=== PATIENT | female | born 1960 | race Caucasian/White ===

== ENCOUNTER 2017-11-20 08:32 | Emergency (ER) | payer MEDICARE, SELFPAY ==
[2017-11-20 08:33] VITALS: BP 138/77; PULSE 91; RESP 16; TEMP 36.7; O2SAT 100; BMI 22.6
[2017-11-20 08:34] VITALS: BMI 22.6
--- NOTE | 2017-11-20 08:35 | CT_ITS ---
CT head/brain wo con HISTORY: Lethargic, altered mental status, confusion ITS.REASON: lethargic ORDERING PHYSICIAN: Ross Resendiz MD PATIENT AGE: 57 years COMPARISON: None TECHNIQUE: Axial images obtained without contrast. Brain and bone windows reviewed. All CT scans at the facility use one or more dose reduction, viz: automated exposure control; ma/kV adjustment per patient size (including targeted exams where dose is matched to indication; i.e. head); or iterative reconstruction technique. FINDINGS: No midline shift, mass effect, intracranial hemorrhage, hydrocephalus, or extra-axial fluid collection is evident. Scattered periventricular and subcortical areas of decreased attenuation are present consistent with ischemic gliotic change from microvascular disease. There is a isodensity in the right basal ganglia measuring 7 mm and could be due to a choroidal fissure cyst or an old lacunar infarction. The calvarium has an unremarkable appearance. No mastoid effusion. There is opacification of the posterior aspect of the right ethmoid sinus... IMPRESSION: 1. No acute intracranial findings. 2. Chronic periventricular ischemic gliotic changes. Possible old lacunar infarction of the right basal ganglia versus choroidal fissure cyst 3. There is no evidence of intracranial hemorrhage, focal mass, or acute territorial infarction. A negative CT does not exclude an acute CVA. A follow-up head CT or MRI is recommended if neurological symptoms persist
--- NOTE | 2017-11-20 08:41 | XR_ITS ---
XR chest AP HISTORY: Altered mental status ITS.REASON: ams ORDERING PHYSICIAN: Ross Resendiz MD PATIENT AGE: 57 years COMPARISON: 08/10/2015 FINDINGS: Unremarkable cardiovascular structures. There is mild coarsening of the bronchovascular markings. No lobar consolidation or collapse. IMPRESSION: Chronic changes, no acute finding
--- NOTE | 2017-11-20 08:42 | HMH.EDAMS ---
ED Disposition Clinical Impression: CVA (cerebral vascular accident), Hypocalcemia, Hypothyroidism, Chronic use of opiate for therapeutic purpose Disposition: Xfer Short-Term Hosp Condition on Discharge: Fair Instructions: DI for Altered Mental Status Forms: Transfer Record - ED - Critical Care Critical Care Time: No Attestation: On 11/20/17, the high probability of a clinically significant, sudden or life threatening deterioration of the following system(s) required my full and direct attention, intervention and personal management. The time I documented below is in addition to time spent performing reported procedures but includes the following listed in this critical care notation. Medical Decision Making - Henrry Inquiry Pt receiving controlled substance: No Henrry was queried for this patient: No Vital Signs: 11/20/17 08:33 11/20/17 10:03 11/20/17 11:24 Temperature 98.1 F 98.7 F Temperature Source Oral Oral Pulse Rate 82 Pulse Rate [Left Radial] 91 H 99 H Respiratory Rate 16 16 16 Blood Pressure 131/66 Blood Pressure [Right Arm] 138/77 128/71 Blood Pressure Mean [Right Arm] 97 90 Blood Pressure Source Automatic Cuff Blood Pressure Source [Right Arm] Automatic Cuff Automatic Cuff Blood Pressure Position Sitting Blood Pressure Position [Right Arm] Sitting Sitting 02 Sat by Pulse Oximetry 100 100 Oxygen Delivery Method Nasal Cannula Nasal Cannula Nasal Cannula Oxygen Flow Rate (LPM) 2 2 2 - Lab Data Lab Results 11/20/17 09:30: Urine Color Yellow, Urine Appearance Clear, Urine pH 6.5, Ur Specific [place] 1.020, Urine Protein Negative, Urine Glucose (UA) Negative, Urine Ketones 2+, Urine Blood Negative, Urine Nitrate Negative, Urine Bilirubin Negative, Urine Urobilinogen 2.0, Ur Leukocyte Esterase Negative, Urine RBC Occasional, Urine WBC 3-5, Ur Squamous Epith Cells Occasional, Urine Bacteria 1+, Urine Mucus 3+ 11/20/17 09:30: Urine Opiates Screen Negative, Urine Methadone Screen Negative, Ur Barbituates Screen Negative, Ur Phencyclidine Scrn Negative, Ur Amphetamines Screen Negative, U Benzodiazepines Scrn Negative, Urine Cocaine Screen Negative, U Marijuana (THC) Screen Negative 11/20/17 09:55: WBC 8.7, RBC 4.70, Hgb 15.3, Hct 50.2 H, MCV 106.9 H, MCH 32.6 H, MCHC 30.5 L, RDW 12.5, Plt Count 191, MPV 7.3 L, Neut % (Auto) 83.2 H, Lymph % (Auto) 11.3, [place] % (Auto) 3.3, Eos % (Auto) 1.6, Baso % (Auto) 0.6, Neut # (Auto) 7.2, Lymph # (Auto) 1.0, [place] # (Auto) 0.3, Eos # (Auto) 0.1, Baso # (Auto) 0.1 11/20/17 09:55: Sodium 138, Potassium 4.0, Chloride 103, Carbon Dioxide 26, Anion Gap 13.0, BUN 10, Creatinine 0.75, Estimated Creat Clear 83, Estimated GFR 80, Est GFR ( Amer) 96, Glucose 107 H, Calcium 8.0 L, Total Bilirubin 0.6, AST 39 H, ALT 21, Alkaline Phosphatase 87, Total Creatine Kinase 171, CK-MB (CK-2) 3.8 H, CK-MB (CK-2) Rel Index 2.2, Troponin I < 0.02, Total Protein 6.9, Albumin 2.7 L, Globulin 4.2 H, Albumin/Globulin Ratio 0.6 L, Plasma/Serum Alcohol < 3 11/20/17 09:55: Lipase 111 11/20/17 09:55: Magnesium 1.6, TSH 3.39, Free T4 0.99, Free T4 Index 2.7 L, Thyroxine (T4) 7.6, T3 Uptake 35 11/20/17 09:56: POC Glucose 100 11/20/17 10:15: Specimen Source Right radial, O2 % 28% nc, ABG pH 7.33 L, ABG pCO2 37.5, ABG pO2 103.8 H, ABG HCO3 19.5 L, ABG Total CO2 20.7 L, ABG O2 Saturation 97, ABG Base Excess -6.4 L, Harpal Test Patient unable Result diagrams: 11/20/17 09:55 11/20/17 09:55 Orders (Tests/Meds): ED MEDICATIONS Discontinued Medications Generic Name Dose Route Start Last Admin Trade Name Freq PRN Reason Stop Dose Admin Aspirin 300 mg 11/20/17 10:51 11/20/17 10:54 Aspirin 600mg Suppository RC 11/20/17 10:52 300 mg ONCE ONE Administration Folic Acid 1 mg 11/20/17 08:52 11/20/17 10:53 Folic Acid 1mg Tablet PO 11/20/17 08:53 Not Given ONCE ONE Sodium Chloride 1,000 mls @ 999 mls/hr 11/20/17 09:
--- NOTE | 2017-11-20 08:46 | ED_ITS ---
ED Disposition Clinical Impression: CVA (cerebral vascular accident), Hypocalcemia, Hypothyroidism, Chronic use of opiate for therapeutic purpose Disposition: Xfer Short-Term Hosp Condition on Discharge: Fair Instructions: DI for Altered Mental Status Forms: Transfer Record - ED - Critical Care Critical Care Time: No Attestation: On 11/20/17, the high probability of a clinically significant, sudden or life threatening deterioration of the following system(s) required my full and direct attention, intervention and personal management. The time I documented below is in addition to time spent performing reported procedures but includes the following listed in this critical care notation. Medical Decision Making - Henrry Inquiry Pt receiving controlled substance: No Henrry was queried for this patient: No Vital Signs: 11/20/17 08:33 11/20/17 10:03 11/20/17 11:24 Temperature 98.1 F 98.7 F Temperature Source Oral Oral Pulse Rate 82 Pulse Rate [Left Radial] 91 H 99 H Respiratory Rate 16 16 16 Blood Pressure 131/66 Blood Pressure [Right Arm] 138/77 128/71 Blood Pressure Mean [Right Arm] 97 90 Blood Pressure Source Automatic Cuff Blood Pressure Source [Right Arm] Automatic Cuff Automatic Cuff Blood Pressure Position Sitting Blood Pressure Position [Right Arm] Sitting Sitting 02 Sat by Pulse Oximetry 100 100 Oxygen Delivery Method Nasal Cannula Nasal Cannula Nasal Cannula Oxygen Flow Rate (LPM) 2 2 2 - Lab Data Lab Results 11/20/17 09:30: Urine Color Yellow, Urine Appearance Clear, Urine pH 6.5, Ur Specific [place] 1.020, Urine Protein Negative, Urine Glucose (UA) Negative, Urine Ketones 2+, Urine Blood Negative, Urine Nitrate Negative, Urine Bilirubin Negative, Urine Urobilinogen 2.0, Ur Leukocyte Esterase Negative, Urine RBC Occasional, Urine WBC 3-5, Ur Squamous Epith Cells Occasional, Urine Bacteria 1+ , Urine Mucus 3+ 11/20/17 09:30: Urine Opiates Screen Negative, Urine Methadone Screen Negative, Ur Barbituates Screen Negative, Ur Phencyclidine Scrn Negative, Ur Amphetamines Screen Negative, U Benzodiazepines Scrn Negative, Urine Cocaine Screen Negative , U Marijuana (THC) Screen Negative 11/20/17 09:55: WBC 8.7, RBC 4.70, Hgb 15.3, Hct 50.2 H, MCV 106.9 H, MCH 32.6 H , MCHC 30.5 L, RDW 12.5, Plt Count 191, MPV 7.3 L, Neut % (Auto) 83.2 H, Lymph % (Auto) 11.3, [place] % (Auto) 3.3, Eos % (Auto) 1.6, Baso % (Auto) 0.6, Neut # ( Auto) 7.2, Lymph # (Auto) 1.0, [place] # (Auto) 0.3, Eos # (Auto) 0.1, Baso # (Auto ) 0.1 11/20/17 09:55: Sodium 138, Potassium 4.0, Chloride 103, Carbon Dioxide 26, Anion Gap 13.0, BUN 10, Creatinine 0.75, Estimated Creat Clear 83, Estimated GFR 80, Est GFR ( Amer) 96, Glucose 107 H, Calcium 8.0 L, Total Bilirubin 0.6, AST 39 H, ALT 21, Alkaline Phosphatase 87, Total Creatine Kinase 171, CK-MB (CK-2) 3.8 H, CK-MB (CK-2) Rel Index 2.2, Troponin I < 0.02, Total Protein 6.9, Albumin 2.7 L, Globulin 4.2 H, Albumin/Globulin Ratio 0.6 L, Plasma /Serum Alcohol < 3 11/20/17 09:55: Lipase 111 11/20/17 09:55: Magnesium 1.6, TSH 3.39, Free T4 0.99, Free T4 Index 2.7 L, Thyroxine (T4) 7.6, T3 Uptake 35 11/20/17 09:56: POC Glucose 100 11/20/17 10:15: Specimen Source Right radial, O2 % 28% nc, ABG pH 7.33 L, ABG pCO2 37.5, ABG pO2 103.8 H, ABG HCO3 19.5 L, ABG Total CO2 20.7 L, ABG O2 Saturation 97, ABG Base Excess -6.4 L, Harpal Test Patient unable Result diagrams: 11/20/17 09:55 11/20/17 09:55 Orders (Tests/Meds): ED MEDICATIO
[2017-11-20 09:36] LABS: Microscopic, Urine URINE MICROSCOPIC (MICROSCOPIC)
[2017-11-20 09:39] LABS: Appearance,Urine CLEAR (Clear); Blood, Urine Negative (Negative); Color,Urine YELLOW (Yellow); Glucose,Urine (UA) Negative (Negative); Ketones,Urine 2+ (Negative); Leukocyte Esterase,Urine Negative (Negative); Nitrate,Urine Negative (Negative); PH,Urine 6.5 (5.0-8.5); Protein,Urine Negative (Negative)
[2017-11-20 09:45] LABS: Amphetamine/Metha Screen,Urine Negative ng/mL (<1000); Barbiturates Screen,Urine Negative ng/mL (<200); Benzodiazepines Screen,Urine Negative ng/mL (<200); Cannabinoid Screen,Urine Negative ng/mL (<50); Cocaine Screen,Urine Negative ng/mL (<300); Methadone Screen,Urine Negative ng/mL (<300); Opiate Screen,Urine Negative ng/mL (<300); Phencyclidine Screen,Urine Negative ng/mL (<25)
[2017-11-20 09:48] LABS: Bilirubin,Urine Negative (Negative)
[2017-11-20 09:55] LABS: RBC,Urine Occasional #/hpf (0-3); Squamous Epithelial Cell,Urine Occasional #/hpf (0-5)
[2017-11-20 09:56] LABS: Bacteria,Urine 1+ /lpf; Mucus,Urine 3+ /lpf
[2017-11-20 10:03] VITALS: BP 128/71; PULSE 99; RESP 16; O2SAT 100
[2017-11-20 10:09] LABS: Basophils # 0.1 K/mm3 (0-0.2); Basophils % 0.6 % (0.1-2.0); Eosinophils # 0.1 K/mm3 (0.0-0.4); Eosinophils % 1.6 % (0.1-12.0); Hematocrit 50.2 % (37.0-47.0); Hemoglobin 15.3 g/dL (12.2-16.2); Lymphocytes % 11.3 K/mm3 (10-50); Mean Corpuscular HGB Conc 30.5 g/dL (31.8-35.4); Mean Corpuscular Hemoglobin 32.6 pg (27.0-31.2); Mean Corpuscular Volume 106.9 fl (81-99); Mean Platelet Volume 7.3 fl (7.4-10.4); Monocytes # 0.3 K/mm3 (0.1-1.0); Monocytes % 3.3 % (1.7-9.3); Neutrophils # 7.2 K/mm3 (1.8-7.8); Neutrophils % 83.2 % (37.0-80.0); Platelet Count 191 K/mm3 (142-424); Red Cell Distribution Width 12.5 % (11.5-17.5); White Blood Count 8.7 K/mm3 (4.8-10.8)
[2017-11-20 10:22] LABS: ABG Base Excess -6.4 mmol/L (-2.4-2.3); ABG HCO3 19.5 mmhg (22.0-26.0); ABG Oxygen Saturation 97 % (90-100); ABG PCO2 37.5 mmhg (35.0-45.0); ABG PH 7.33 mmol/L (7.35-7.45); ABG PO2 103.8 mmhg (80-100); ABG TCO2 20.7 mmhg (23-27)
[2017-11-20 10:23] LABS: Oxygen 28% NC %
[2017-11-20 10:24] LABS: Allen's Test Patient Unable; Source Right Radial
[2017-11-20 10:26] LABS: POC Glucose,Bedside 100 (70-110)
--- NOTE | 2017-11-20 10:27 | PC.NURSE ---
in with pt and family member. Explained to them that the pt will possibly need to be transferred to a higher level of care. Pt and family agreeable. Dr. Resendiz awaiting final test results before [facility] at this time.
--- NOTE | 2017-11-20 10:31 | PC.NURSE ---
KERLINE ROBBINS speaking with [employer] at this time.
[2017-11-20 10:33] LABS: Creatine Kinase MB 3.8 ng/ml (0.0-3.6); Troponin I < 0.02 ng/ml (0.00-0.06)
[2017-11-20 10:35] LABS: Alanine Aminotransferase 21 U/L (12-78); Albumin Level 2.7 gm/dL (3.4-5.0); Albumin/Globulin Ratio 0.6 (1.1-1.8); Alkaline Phosphatase 87 U/L (46-116); Aspartate Amino Transferase 39 U/L (15-37); Bilirubin,Total 0.6 mg/dL (0.2-1.0); Blood Urea Nitrogen 10 mg/dL (7-18); CKMB Relative Index 2.2 U/L (0-4.0); Carbon Dioxide 26 mmol/L (21.0-32.0); Chloride 103 mmol/L (98-107); Creatine Kinase 171 U/L (26-192); Creatinine Clearance Estimated 83 mL/min (0-300); Creatinine,Serum 0.75 mg/dL (0.55-1.02); Estimated Glomerular Filt Rate 80 ml/min (>60); GFR (African American) 96 ML/MIN (>60); Globulin 4.2 gm/dl (1.3-3.2); Glucose 107 mg/dL (74-106); Sodium 138 mmol/L (136-145); Total Protein,Serum 6.9 gm/dL (6.4-8.2)
--- NOTE | 2017-11-20 10:38 | PC.NURSE ---
dr Resendiz speaking with Dr Larsen at
[2017-11-20 10:41] LABS: Ethyl Alcohol < 3 mg/dL (0-99); Magnesium 1.6 mg/dL (1.4-2.2); T4 (Thyroxine) 7.6 ug/dl (4.7-13.3)
[2017-11-20 10:42] LABS: Free T4 (Free Thyroxine) 0.99 ng/dl (0.76-1.46); Free Thyroxine Index 2.7 ug/dL (5.93-13.13); Thyroid Stimulating Hormone 3.39 uIU/ml (0.358-3.740); Triiodothryronine (T3) Uptake 35 % (31-39)
[2017-11-20 10:43] LABS: Lipase 111 u/L (73-393)
--- NOTE | 2017-11-20 10:47 | PC.NURSE ---
Pt to be transferred to under the care of Dr. Michel.
[2017-11-20 11:24] VITALS: BP 131/66; PULSE 82; RESP 16; TEMP 37.1; O2SAT 100
[2017-11-22 05:14] LABS: Folate 5.4 ng/mL (>3.0)
[2017-11-22 11:41] LABS: Lithium (Eskalith(R)) 0.5 mmol/L (0.6-1.2)
[2017-11-22 11:42] LABS: Vitamin B12 642 pg/mL (232-1245)
== END 2017-11-20 11:26 | disposition short-term general hospital (02) ==
PROVIDERS: Emergency Provider Emergency Medicine
DX: I63.9 Cerebral infarction, unspecified (principal); E83.51 Hypocalcemia; E03.9 Hypothyroidism, unspecified; I25.10 Atherosclerotic heart disease of native coronary artery without angina pectoris; Z79.891 Long term (current) use of opiate analgesic; F17.210 Nicotine dependence, cigarettes, uncomplicated; Z88.0 Allergy status to penicillin; Z88.2 Allergy status to sulfonamides; Z88.6 Allergy status to analgesic agent
CPT/HCPCS: 70450; 71045; 80053; 80178; 80305; 81001; 82550; 82553; 82607; 82746; 82803; 82962; 83690; 83735; 84436; 84439; 84443; 84479; 84484; 85025; 93005; 96365; 99285

== ENCOUNTER 2020-03-05 22:04 | Emergency (ER) | payer OTHER, SELFPAY ==
[2020-03-05 22:18] VITALS: BP 157/97; PULSE 114; RESP 20; TEMP 36.9; O2SAT 91; BMI 18.3
[2020-03-05 23:05] LABS: Basophils # 0.1 K/mm3 (0-0.2); Eosinophils # 0.3 K/mm3 (0.0-0.4); Eosinophils % 1.9 % (0.1-12.0); Hemoglobin 16.7 g/dL (12.2-16.2); Lymphocytes # 2.3 K/mm3 (0.7-4.5); Lymphocytes % 15.6 % (10-50); Mean Corpuscular HGB Conc 30.9 g/dL (31.8-35.4); Mean Corpuscular Hemoglobin 32.5 pg (27.0-31.2); Mean Corpuscular Volume 105.1 fl (81-99); Mean Platelet Volume 7.9 fl (7.4-10.4); Monocytes # 0.6 K/mm3 (0.1-1.0); Monocytes % 4.3 % (1.7-9.3); Neutrophils # 11.3 K/mm3 (1.8-7.8); Neutrophils % 77.3 % (37.0-80.0); Platelet Count 231 K/mm3 (142-424); Red Blood Count 5.13 M/mm3 (4.20-5.40); Red Cell Distribution Width 14.7 % (11.5-17.5); White Blood Count 14.7 K/mm3 (4.8-10.8)
[2020-03-05 23:12] LABS: Chloride 103 mmol/L (98-107); Potassium 3.8 mmoL/L (3.5-5.1); Sodium 137 mmol/L (136-145)
[2020-03-05 23:14] LABS: Blood Urea Nitrogen 12 mg/dl (7-17)
[2020-03-05 23:15] LABS: Anion Gap 8.8 mEq/L (5-15); Calcium 10.9 mg/dl (8.4-10.2); Carbon Dioxide 29 mmol/L (22.0-30.0); Creatinine Clearance Estimated 33 mL/min (50-200); Estimated Glomerular Filt Rate 36 ml/min (>60); GFR (African American) 43 ML/MIN (>60); Glucose 125 mg/dl (74-100)
--- NOTE | 2020-03-05 23:17 | ECG_ITS ---
APPROVED REPORT Exam: Resting ECG HR:103 bpm ECG Measurements Heart Rate 103 AXES WY 148 P 74 QRSd 74 QRS 60 QT 360 T 63 QTc 471 Conclusion Sinus tachycardia Possible Left atrial enlargement Nonspecific ST abnormality Abnormal ECG Electronically signed by : Adrian Paz, 03/21/2020 16:42:36
[2020-03-05 23:21] LABS: Microscopic, Urine URINE MICROSCOPIC (MICROSCOPIC)
[2020-03-05 23:22] LABS: Appearance,Urine CLEAR (Clear); Bilirubin,Urine Negative (Negative); Blood, Urine Negative (Negative); Color,Urine YELLOW (Yellow); Glucose,Urine (UA) Negative (Negative); Ketones,Urine Negative (Negative); Leukocyte Esterase,Urine TRACE (Negative); Nitrate,Urine Negative (Negative); Protein,Urine Negative (Negative); Urobilinogen,Urine 0.2 EU/dl (0.2)
[2020-03-05 23:30] VITALS: BP 135/77; PULSE 113; O2SAT 92
[2020-03-05 23:33] LABS: Amphetamine/Metha Screen,Urine Negative ng/ml (<1000)
[2020-03-05 23:34] LABS: Barbiturates Screen,Urine Negative ng/ml (<200); Benzodiazepines Screen,Urine Negative ng/ml (<200)
[2020-03-05 23:35] LABS: Cannabinoid Screen,Urine Negative ng/ml (<50)
[2020-03-05 23:36] LABS: Cocaine Screen,Urine Negative ng/ml (<300); Methadone Screen,Urine Negative ng/ml (<300)
[2020-03-05 23:37] LABS: Opiate Screen,Urine Negative ng/ml (<300)
[2020-03-05 23:38] LABS: Phencyclidine Screen,Urine Negative ng/ml (<25)
--- NOTE | 2020-03-05 23:44 | HMH.EDGENADL ---
ED Disposition Clinical Impression: Acute psychosis Disposition: Still a Patient Condition on Discharge: Good Referrals: PCP,No [Primary Care Provider] - - Critical Care Critical Care Time: No Attestation: On 03/05/20, the high probability of a clinically significant, sudden or life threatening deterioration of the following system(s) required my full and direct attention, intervention and personal management. The time I documented below is in addition to time spent performing reported procedures but includes the following listed in this critical care notation. Medical Decision Making - Medical Records Medical records reviewed: Yes: I reviewed the patient's medical records. - Henrry Inquiry Pt receiving controlled substance: No Vital Signs: 03/05/20 22:18 03/05/20 23:30 Temperature 98.5 F Temperature Source Oral Pulse Rate [Right] 114 H 113 H Respiratory Rate 20 Blood Pressure [Left Arm] 157/97 H 135/77 Blood Pressure Mean [Left Arm] 117 96 Blood Pressure Source [Left Arm] Automatic Cuff Blood Pressure Position [Left Arm] Sitting 02 Sat by Pulse Oximetry 91 L 92 L Oxygen Delivery Method Room Air - Lab Data Lab Results 03/05/20 22:55: WBC 14.7 H, RBC 5.13, Hgb 16.7 H, Hct 54.0 H, MCV 105.1 H, MCH 32.5 H, MCHC 30.9 L, RDW 14.7, Plt Count 231, MPV 7.9, Neut % (Auto) 77.3, Lymph % (Auto) 15.6, [place] % (Auto) 4.3, Eos % (Auto) 1.9, Baso % (Auto) 1.0, Neut # (Auto) 11.3 H, Lymph # (Auto) 2.3, [place] # (Auto) 0.6, Eos # (Auto) 0.3, Baso # (Auto) 0.1 03/05/20 22:55: Sodium 137, Potassium 3.8, Chloride 103, Carbon Dioxide 29, Anion Gap 8.8, BUN 12, Creatinine 1.50 H, Estimated Creat Clear 33, Estimated GFR 36 L, Est GFR ( Amer) 43 L, Glucose 125 H, Calcium 10.9 H 03/05/20 23:10: Urine Color Yellow, Urine Appearance Clear, Urine pH 7.0, Ur Specific [place] 1.010, Urine Protein Negative, Urine Glucose (UA) Negative, Urine Ketones Negative, Urine Blood Negative, Urine Nitrate Negative, Urine Bilirubin Negative, Urine Urobilinogen 0.2, Ur Leukocyte Esterase Trace, Urine WBC 5-10, Ur Squamous Epith Cells -03/05/20 23:10: Urine Opiates Screen Negative, Urine Methadone Screen Negative, Ur Barbituates Screen Negative, Ur Phencyclidine Scrn Negative, Ur Amphetamines Screen Negative, U Benzodiazepines Scrn Negative, Urine Cocaine Screen Negative, U Marijuana (THC) Screen Negative Result diagrams: 03/05/20 22:55 03/05/20 22:55 Orders (Tests/Meds): ED MEDICATIONS Generic Name Dose Route Start Last Admin Trade Name Johan PRN Reason Stop Dose Admin Lactated Ringer's 1,000 mls @ 999 mls/hr 03/05/20 23:45 03/05/20 23:45 Lactated Ringer's 1000 Ml Bag IV 03/06/20 00:45 999 mls/hr .[id number] NELSON Administration Medical Decision Narrative: In summary 59-year-old female presenting for multiple complaints. Patient herself has no complaints however her daughter is concerned at bedside about her hallucinations, delusions and possible medication noncompliance. Patient has vitals concerning for tachycardia, given her history of lithium use basic labs were obtained including CMP, CBC, UDS, UA. On repeat assessment UDS and UA were negative, patient's blood blood work was concerning for dehydration, was given 1 L bolus of LR. EKG within normal limits, normal QTC and QT intervals. Discussed with patient that she does not have any SI, HI, AH, VH. Discussed with patient's sister (Esthela Woodson [phone]) who both state that pt is unsafe to go home, pt has not showered in 2 weeks, has had delusions of being followed and believes her phone is being tapped. Pt has significant paranoia which is new over this past 1.5 weeks. Pt also was requesting a gun to keep herself safe. Family unwilling to accept patient at this time. Hospitalist unwilling to admit patient until psych or case management can assess. Pt does not want to be transferred for psych assessment, pt was placed on 72 hour hold. Pastos level was sent off, thi
[2020-03-06] VITALS (8 sets, daily range): BP systolic 100–144; BP diastolic 52–85; PULSE 78–110; RESP 17–19; TEMP 36.7; O2SAT 92–100
--- NOTE | 2020-03-06 01:00 | PC.NURSE ---
Pt's daughter Kirsty Duran refuses to come get pt, states she is not welcome home.
--- NOTE | 2020-03-06 01:30 | PC.NURSE ---
Spoke with [facility] and they state they will only take pt on petition if they state to them they are suicidal. Pt does not at this time, but pt's daughter states she a harm to herself and refuses to come get her
--- NOTE | 2020-03-06 01:50 | PC.NURSE ---
I spoke with [facility] dispatch with Physician request for petition, they will have an officer call
--- NOTE | 2020-03-06 02:01 | PC.NURSE ---
Spoke with Officer Marcos with [employer] called back and states the officer does not do petitions for mental health and the pt will need to stay with us until saturday and the physician can petition the courts then.
--- NOTE | 2020-03-06 07:31 | PC.NURSE ---
Calling [facility] at this time.
--- NOTE | 2020-03-06 07:35 | PC.NURSE ---
Spoke with Yane at the [facility], she stated that they had a large call volume at this time for Zoom assessments but did have a phone only clinician available quicker. She was going to touch base with them and call us back. agreeable to this. No new orders at this time.
[2020-03-06 08:04] LABS: Ethyl Alcohol < 10 mg/dl (0-10)
--- NOTE | 2020-03-06 08:13 | PC.NURSE ---
Spoke with pt's daughter. She states that mother was drinking last night when she called to have the welfare check done. She also states that per pt's significant other tells her that she has taken herself off of her lithium. Pt has been cutting up her pills and went from 900mg a day down to 300mg and has not had a refill since july. aware.
--- NOTE | 2020-03-06 08:42 | PC.NURSE ---
Cat from the [facility] calls back. pt hx given and Cat is now speaking with pt.
--- NOTE | 2020-03-06 08:55 | PC.NURSE ---
Pt's daughter Kirsty calls back and states she has found out more info on her pt's medications from pt's significant other. Supposedly pt's psychiatrist has changed her dose of suboxone recently and she wasn't completely sure of the new dose. Pt is now speaking with Dr Arellano at this time.
--- NOTE | 2020-03-06 09:13 | PC.NURSE ---
Cat from the [facility] calls back stating that she is unable to see any issues with her mentally at this time. Cat is speaking with ER MD at this time.
[2020-03-06 10:00] LABS: Coronavirus 19 IgG Antibody Negative (Negative); Coronavirus 19 IgM Antibody Negative (Negative)
--- NOTE | 2020-03-06 10:25 | PC.NURSE ---
Spoke with Cat russ from the [facility]. She states that their MD there is suggesting a 72 hour hold due to the nature of the situation. She suggests speaking with our skilled nursing case manager to see how to follow up with getting the 72 hold.
--- NOTE | 2020-03-06 10:34 | PC.NURSE ---
Set O Type Operator Evelyn duran. She returns call. Explain to her the situation. She will be contacting Gina Chavez, Transitions Rn Care Coordinator who will be better equipped to handle this case and would have her return call.
--- NOTE | 2020-03-06 10:44 | PC.NURSE ---
Gina Chavez, Laundry Washer returned call. She states that there is paperwork up in her office to get it and fill it out appropriately. Call [facility] and explain to them the pt's situation. Tell them about the 72 hour hold need. Fax the information to [facility], the paperwork will have to be notarized once filled out. there will have to be a nurse to nurse report and a MD to MD report. Then to call dispatch to have then send an officer to take documents to the quality improvement consultant historian research assistant for approval.
--- NOTE | 2020-03-06 11:03 | PC.NURSE ---
Called [employer]rency [employer] Specialist to obtain a Notary, she will contact me when she obtains one.
--- NOTE | 2020-03-06 11:08 | PC.NURSE ---
KERLINE ROBBINS speaking with Gina Chavez at this time.
--- NOTE | 2020-03-06 11:54 | PC.NURSE ---
Called [facility] to see what all documentation they needed from us to accept pt.\ Admissions Dept states to send info to [phone] and call report to [phone]. Will be sending all necessary documents at this time.
--- NOTE | 2020-03-06 11:57 | PC.NURSE ---
Called [facility]patch to get secretary of police to take the paper work to the healthcare administration internship administrative judge.
--- NOTE | 2020-03-06 12:07 | PC.NURSE ---
Officer Linden returned call. States that he will get the contact info for the television production technician [employer] and return call.
--- NOTE | 2020-03-06 12:11 | PC.NURSE ---
Officer Linden returns call again with contact info for Judge Granger [phone]. Officer Linden states that we are to call his cell phone number and speak with him about pt and situation and he will give us a fax number to send paper work to. Once approval is gotten call Officer Linden back and he will then arrange transport.
--- NOTE | 2020-03-06 13:07 | PC.NURSE ---
pt eating lunch at this time.
--- NOTE | 2020-03-06 13:12 | PC.NURSE ---
report called to Juan at [facility]. Nurse states that pt is to have covid swab before entering their facility. Sending swab to lab at this time.
--- NOTE | 2020-03-06 13:15 | PC.NURSE ---
Received fax back from Judge Granger at this time.
[2020-03-06 13:24] LABS: Adenovirus,PCR Not Detected (NotDetected); Bordetella Pertussis Not Detected (NotDetected); Chlamydophila Pneumoniae, PCR Not Detected (NotDetected); Coronavirus 19, PCR Not Detected (NotDetected); Coronavirus 229E Not Detected (NotDetected); Coronavirus NL63 Not Detected (NotDetected); Coronavirus OC43 Not Detected (NotDetected); Coronovirus HKU1,PCR Not Detected (NotDetected); Human Metapneumovirus Not Detected (NotDetected); Influenza A, PCR Not Detected (NotDetected); Influenza AH1, 2009 Not Detected (NotDetected); Influenza AH1, PCR Not Detected (NotDetected); Influenza AH3,PCR Not Detected (NotDetected); Influenza B, PCR Not Detected (NotDetected); Mycoplasma Pneumoniae, PCR Not Detected (NotDetected); Parainfluenza 1, PCR Not Detected (NotDetected); Parainfluenza 2, PCR Not Detected (NotDetected); Parainfluenza 3, PCR Not Detected (NotDetected); Parainfluenza 4, PCR Not Detected (NotDetected); Respiratory Syncytial Virus Not Detected (NotDetected); Rhinovirus/Enterovirus Not Detected (NotDetected)
--- NOTE | 2020-03-06 14:55 | PC.NURSE ---
Covting results back. Called [facility] dispatch to let them know to send an officer up to us.
--- NOTE | 2020-03-06 15:07 | PC.NURSE ---
Officer Linden called back stating he had to call someone in to transport the pt to [facility]. Stated that it could be a little bit before they got here but assured me someone was coming.
== END 2020-03-06 16:30 | disposition still patient (30) ==
PROVIDERS: Emergency Medicine; Emergency Provider Emergency Medicine
DX: F23 Brief psychotic disorder (principal); E03.9 Hypothyroidism, unspecified; F30.8 Other manic episodes; F17.210 Nicotine dependence, cigarettes, uncomplicated; Z91.14 Patient's other noncompliance with medication regimen; Z88.0 Allergy status to penicillin; Z88.2 Allergy status to sulfonamides; Z88.5 Allergy status to narcotic agent; Z20.828 Contact with and (suspected) exposure to other viral communicable diseases
CPT/HCPCS: 80048; 80305; 81001; 85025; 86328; 87581; 87633; 87798; 93005; 99284